=== PATIENT | male | born 1950 | race Caucasian/White ===

== ENCOUNTER → 2016-07-20 | Outpatient (CLI) | payer OTHER | LOC: FIMAGING 18:47 | PROVIDERS: ATTEND Orthopaedic Surgery | DX: M23.222 Derangement of posterior horn of medial meniscus due to old tear or injury, left knee (principal); M25.462 Effusion, left knee; M76.32 Iliotibial band syndrome, left leg; M22.42 Chondromalacia patellae, left knee ==

== ENCOUNTER 2017-10-30 13:59 | Inpatient (IN) | payer OTHER ==
--- NOTE | 2017-10-30 14:12 | CPEKG ---
Heart Rate: 88 RR Interval: 682 P-R Interval: 160 QRSD Interval: 128 QT Interval: 392 QTC Interval: 475 P Golden: 70 QRS Golden: 61 T Wave Golden: 2 EKG Severity - ABNORMAL ECG - EKG Impression: SINUS RHYTHM EKG Impression: RIGHT BUNDLE BRANCH BLOCK Electronically Signed By: Kiana Zaragoza 30-Oct-2017 15:32:07
[2017-10-30] MEDS ORDERED: ASPIRIN 81 MG CHEWABLE TAB ONE (14:45)
[2017-10-30] MEDS ORDERED: ASPIRIN 81 MG CHEWABLE TAB PO ONE (14:48)
[2017-10-30 14:58] LABS: PLATELET COUNT 213 10^3/uL (150-400)
--- NOTE | 2017-10-30 15:05 | EDPHY ---
H & P Stated Complaint: L sided CP during exertion on bike ride;no other sxs;has lessened sinc arri Time Seen by Provider: 10/30/17 14:36 HPI/ROS: CHIEF COMPLAINT: Chest pain HISTORY OF PRESENT ILLNESS: 67-year-old male presents with chest pain. Onset left-sided chest pain this afternoon while on a bike ride. The chest pain lasted approximately 20 min and then resolved once he stopped riding his bike. No associated symptoms. Similar episode yesterday while on the treadmill, lasting approximately 15 min and resolved with rest. History of prior transient chest pain. Calcium scoring 9 years ago 400, according to the patient. He has been on a statin since then. Cardiac risk factors positive for hyperlipidemia and family history. Nonsmoker ; no hypertension, no diabetes. REVIEW OF SYSTEMS: complete 10 point ROS negative except at noted in the HPI - Personal History Current Tetanus Diphtheria and Acellular Pertussis (TDAP): Yes - Medical/Surgical History Other PMH: Hyperlipidemia - Family History Significant Family History: Heart disease - Social History Smoking Status: Never smoked Alcohol Use: Sober Drug Use: None - Physical Exam Exam: General Appearance: Alert, pleasant Eyes: Pupils equal and round, no conjunctival pallor or injection ENT, Mouth: Mucous membranes moist Neck: Normal inspection Respiratory: Normal inspection, no chest wall tenderness, Lungs are clear to auscultation Cardiovascular: Regular rate and rhythm Gastrointestinal: Abdomen is soft and nontender Neurological: A&O, nonfocal, normal gait Skin: Warm and dry, no rash Extremities: Nontender, no pedal edema Psychiatric: Mood and affect normal Constitutional: Initial Vital Signs Temperature (C) 36.7 C 10/30/17 13:59 Heart Rate 92 10/30/17 13:59 Respiratory Rate 18 10/30/17 13:59 Blood Pressure 122/75 H 10/30/17 13:59 O2 Sat (%) 98 10/30/17 13:59 O2 Delivery Mode Room Air Allergies/Adverse Reactions: Sulfa (Sulfonamide Antibiotics) Allergy (Mild, Verified 10/30/17 14:04) GI upset Home Medications: Medication Instructions Recorded Aspirin EC [Aspirin EC 81 mg (*)] 81 mg PO DAILY 10/30/17 Simvastatin [Zocor] 40 mg PO HS 10/30/17 celeCOXIB [Celebrex (*)] 200 mg PO DAILY PRN 10/30/17 Medical Decision Making - Diagnostics EKG Interpretation: EKG interpreted by me reveals normal sinus rhythm, rate 88, right bundle branch block. Interpretation: Abnormal EKG Imaging Results: Imaging Impressions Chest X-Ray 10/30/17 14:43 Impression: No acute findings in the chest. ED Course/Re-evaluation: This patient presents with exertional chest pain, concerning for unstable angina. Stat EKG reveals no evidence of ischemia or dysrhythmia. Aspirin 324 mg orally given. I-STAT troponin is negative. 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 The patient was asymptomatic throughout his emergency department stay. The hospitalist service was consulted for admission for further evaluation of exertional chest pain. Differential Diagnosis: Differential diagnosis includes though it is not limited to pneumonia, pneumothorax, pulmonary embolism, aortic dissection, pericarditis, acute coronary syndrome. - Data Points Laboratory Results: Laboratory Results 10/30/17 14:15 10/30/17 14:15 10/30/17 10/30/17 10/30/17 14:15 14:15 14:15 WBC RBC Hgb Hct MCV MCH MCHC RDW Plt Count MPV Neut % (Auto) Lymph % (Auto) [place] % (Auto) Eos % (Auto) Baso % (Auto) Nucleat RBC Rel Count Absolute Neuts (auto) Absolute Lymphs (auto) Absolute Monos (auto) Absolute Eos (auto) Absolute Basos (auto) Absolute Nucleated RBC Immature Gran % Immature Gran # D-Dimer 0.45 ug/mLFEU ug/mLFEU (0.00-0.50) Sodium 145 mEq/L mEq/L (135-145) Potassium 3.9 mEq/L mEq/L (3.3-5.0) Chloride 106 mEq/L mEq/L (97-110) Carbon Dioxide 26 mEq/l mEq/l (22-31) Anion Gap 13 mEq/L mEq/L (8-16) BUN 16 mg/dL mg/dL (7-23) Creatinine 1.1 mg/dL mg/dL (0.7-1.3) Estimated GFR > 60 Glucose 78 mg/dL mg/dL (70-100) Hemoglobin A1c Pending Estim Average Glucose Pending Calcium 10.3 mg/dL mg/dL (8.5-10.4) POC Troponin I NT-Pro-B Natriuret Pep 102 pg/mL pg/mL (0-125) 10/30/17 10/30/17 14:15 14:14 WBC 5.28 10^3/uL 10^3/uL (3.80-9.50) RBC 4.96 10^6/uL 10^6/uL (4.40-6.38) Hgb 15.3 g/dL g/dL (13.7-17.5) Hct 45.5 % % (40.0-51.0) MCV 91.7 fL fL (81.5-99.8) MCH 30.8 pg pg (27.9-34.1) MCHC 33.6 g/dL g/dL (32.4-36.7) RDW 12.8 % % (11.5-15.2) Plt Count 213 10^3/uL 10^3/uL (150-400) MPV 9.7 fL fL (8.7-11.7) Neut % (Auto) 49.8 % % (39.3-74.2) Lymph % (Auto) 39.2 % % (15.0-45.0) [place] % (Auto) 8.3 % % (4.5-13.0) Eos % (Auto) 1.7 % % (0.6-7.6) Baso % (Auto) 0.8 % % (0.3-1.7) Nucleat RBC Rel Count 0.0 % % (0.0-0.2) Absolute Neuts (auto) 2.63 10^3/uL 10^3/uL (1.70-6.50) Absolute Lymphs (auto) 2.07 10^3/uL 10^3/uL (1.00-3.00) Absolute Monos (auto) 0.44 10^3/uL 10^3/uL (0.30-0.80) Absolute Eos (auto) 0.09 10^3/uL 10^3/uL (0.03-0.40) Absolute Basos (auto) 0.04 10^3/uL 10^3/uL (0.02-0.10) Absolute Nucleated RBC 0.00 10^3/uL 10^3/uL (0-0.01) Immature Gran % 0.2 % % (0.0-1.1) Immature Gran # 0.01 10^3/uL 10^3/uL (0.00-0.10) D-Dimer Sodium Potassium Chloride Carbon Dioxide Anion Gap BUN Creatinine Estimated GFR Glucose Hemoglobin A1c Estim Average Glucose Calcium POC Troponin I 0.01 ng/mL ng/mL (0.00-0.08) NT-Pro-B Natriuret Pep Medications Given: Albuterol (Proventil Neb) 3 ml IH QID KIMBERLY Stop: 04/28/18 16:34 Last Admin: 10/30/17 17:22 Dose: 3 ml Discontinued Medications Aspirin (Aspirin) 324 mg PO EDNOW ONE Stop: 10/30/17 14:49 Last Admin: 10/30/17 14:49 Dose: 324 mg Point of Care Test Results: Chemistry 10/30/17 14:14 POC Troponin I 0.01 ng/mL ng/mL (0.00-0.08) Departure - Departure Disposition: [facility] Inpatient Acute Clinical Impression: Chest pain Qualifiers: Chest pain type: precordial pain Qualified Code(s): R07.2 - Precordial pain Condition: Good
[2017-10-30] MEDS ORDERED: ONDANSETRON 4 MG/2 ML VIAL IVP PRN (15:47)
[2017-10-30] MEDS ORDERED: ONDANSETRON DISINTEGRATING 4 MG TAB PO PRN (15:47)
[2017-10-30] MEDS ORDERED: ACETAMINOPHEN 325 MG TAB PO PRN (15:47)
--- NOTE | 2017-10-30 16:41 | PDGENHP ---
History and Physical - Chief Complaint chest pain - History of Present Illness This is a 67 yo male with fm hx of CAD who p/w left sided chest pain and discomfort. He reports a long hx of chest discomfort upon beginning his exercise routine such a running or cycling but then dissipating after a few minutes. Yesterday the discomfort persisted while he ran the treadmill and today the discomfort was constant during the climb on a bike ride. He, therefore , rode his bike to the ER. In the ER a trop and an EKG are non revealing. A CXR does show hyperinflation ( my read). He does not have a hx of bronchitis, asthma, copd. He does not smoke RF: Family hx, HLD. He does not have a hx of DM or HTN. He is not obese. He denies current chest pain. no palpitations or leg swelling. No abd pain or discomfort CHIEF COMPLAINT: Chest pain HISTORY OF PRESENT ILLNESS: 67-year-old male presents with chest pain. Onset left-sided chest pain this afternoon while on a bike ride. The chest pain lasted approximately 20 min and then resolved once he stopped riding his bike. No associated symptoms. Similar episode yesterday while on the treadmill, lasting approximately 15 min and resolved with rest. History of prior transient chest pain. Calcium scoring 9 years ago 400, according to the patient. He has been on a statin since then. Cardiac risk factors positive for hyper lipidemia and family history. Nonsmoker ; no hypertension, diabetes. REVIEW OF SYSTEMS: complete 10 point ROS negative except at noted in the HPI - Medical/Surgical History Other PMH: Hyperlipidemia - Family History Significant Family History: Heart disease - Social History Smoking Status: Never smoked Alcohol Use: Socially, drinks wine with dinner Drug Use: None History Information - Allergies/Home Medication List Allergies/Adverse Reactions: Sulfa (Sulfonamide Antibiotics) Allergy (Mild, Verified 10/30/17 14:04) GI upset Home Medications: Aspirin EC [Aspirin EC 81 mg (*)] 81 mg PO DAILY 10/30/17 [Last Taken 10/29/17] Simvastatin [Zocor] 40 mg PO HS 10/30/17 [Last Taken 10/29/17] celeCOXIB [Celebrex (*)] 200 mg PO DAILY PRN 10/30/17 [Last Taken Unknown] I have personally reviewed and updated: medical history, social history - Social History Smoking Status: Never smoked Alcohol Use: Sober Drug Use: None Review of Systems Review of Systems: ROS: 10pt was reviewed & negative except for what was stated in HPI & below Physical Exam Physical Exam: Temp Pulse Resp BP Pulse Ox 36.9 C 59 L 16 123/69 H 94 10/30/17 16:06 10/30/17 16:06 10/30/17 16:06 10/30/17 16:06 10/30/17 16:06 Constitutional: no apparent distress, not in pain Eyes: PERRL, EOMI Ears, Nose, Mouth, Throat: moist mucous membranes, hearing normal, ears appear normal Cardiovascular: regular rate and rhythym, no murmur, rub, or gallop, No edema Respiratory: no respiratory distress, reduced air movement, No expiratory wheeze Gastrointestinal: normoactive bowel sounds, soft, non-tender abdomen Skin: warm Musculoskeletal: No generalized weakness Neurologic: AAOx3 Psychiatric: interacting appropriately, not anxious, not encephalopathic Lymph, Heme, Immunologic: No petechiae Lab Data & Imaging Review 10/30/17 14:15 10/30/17 14:15 WBC 5.28 10^3/uL (3.80-9.50) 10/30/17 14:15 RBC 4.96 10^6/uL (4.40-6.38) 10/30/17 14:15 Hgb 15.3 g/dL (13.7-17.5) 10/30/17 14:15 Hct 45.5 % (40.0-51.0) 10/30/17 14:15 MCV 91.7 fL (81.5-99.8) 10/30/17 14:15 MCH 30.8 pg (27.9-34.1) 10/30/17 14:15 MCHC 33.6 g/dL (32.4-36.7) 10/30/17 14:15 RDW 12.8 % (11.5-15.2) 10/30/17 14:15 Plt Count 213 10^3/uL (150-400) 10/30/17 14:15 MPV 9.7 fL (8.7-11.7) 10/30/17 14:15 Neut % (Auto) 49.8 % (39.3-74.2) 10/30/17 14:15 Lymph % (Auto) 39.2 % (15.0-45.0) 10/30/17 14:15 [place] % (Auto) 8.3 % (4.5-13.0) 10/30/17 14:15 Eos % (Auto) 1.7 % (0.6-7.6) 10/30/17 14:15 Baso % (Auto) 0.8 % (0.3-1.7) 10/30/17 14:15 Nucleat RBC Rel Count 0.0 % (0.0-0.2) 10/30/17 14:15 Absolute Neuts (auto) 2.63 10^3/uL (1.70-6.50) 10/30/17 14:15 Absolute Lymphs (auto) 2.07 10^3/uL (1.00-3.00) 10/30/17 14:15 Absolute Monos (auto) 0.44 10^3/uL (0.30-0.80) 10/30/17 14:15 Absolute Eos (auto) 0.09 10^3/uL (0.03-0.40) 10/30/17 14:15 Absolute Basos (auto) 0.04 10^3/uL (0.02-0.10) 10/30/17 14:15 Absolute Nucleated RBC 0.00 10^3/uL (0-0.01) 10/30/17 14:15 Immature Gran % 0.2 % (0.0-1.1) 10/30/17 14:15 Immature Gran # 0.01 10^3/uL (0.00-0.10) 10/30/17 14:15 D-Dimer 0.45 ug/mLFEU (0.00-0.50) 10/30/17 14:15 Sodium 145 mEq/L (135-145) 10/30/17 14:15 Potassium 3.9 mEq/L (3.3-5.0) 10/30/17 14:15 Chloride 106 mEq/L (97-110) 10/30/17 14:15 Carbon Dioxide 26 mEq/l (22-31) 10/30/17 14:15 Anion Gap 13 mEq/L (8-16) 10/30/17 14:15 BUN 16 mg/dL (7-23) 10/30/17 14:15 Creatinine 1.1 mg/dL (0.7-1.3) 10/30/17 14:15 Estimated GFR > 60 10/30/17 14:15 Glucose 78 mg/dL (70-100) 10/30/17 14:15 Calcium 10.3 mg/dL (8.5-10.4) 10/30/17 14:15 POC Troponin I 0.01 ng/mL (0.00-0.08) 10/30/17 14:14 NT-Pro-B Natriuret Pep 102 pg/mL (0-125) 10/30/17 14:15 Assessment & Plan Assessment: #chest pain #? RAD #HLD Plan: Observation The persistence of his symptoms while riding his bike on a climb are worrisome. He will get serial trops, telemetry, TTE. Will order treadmill stress tomorrow Other etiologies could also include RAD and will try a trial of bronchodilators cont home meds -cont daily aspirin check lipid panel and A1C SCD Full code
[2017-10-30] MEDS: ALBUTEROL 3 ML DEYVIAL IH SCH ×2 (17:22→21:50)
[2017-10-30] MEDS: ATORVASTATIN CALCIUM 20 MG TAB PO SCH (20:53)
[2017-10-31] MEDS: ALBUTEROL 3 ML DEYVIAL IH SCH ×3 (06:05→16:42)
[2017-10-31] MEDS ORDERED: ASPIRIN EC 81 MG TAB PO SCH (09:00)
--- NOTE | 2017-10-31 10:14 | ASMTCMCOM ---
CM Note CM Note Notes: 10/31/2017 Case Management Note Met w/pt. ORTIZ signed. Pt admitted for chest pain and subsequent work up. Pt is employed as an telecom sales consultant. Pt lives independently with his Ashly [phone]. Pt is an avid biker. There are no case management d/c needs identified. Case Management d/c poc: independent with follow up as directed. Case Management available if needs change. Date Signed: 10/31/2017 10:13 AM Electronically Signed By:Nehal Garcia RN
--- NOTE | 2017-10-31 11:39 | PDCARST ---
CAR Stress Test Results Type of Stress Test: Pepito protocol stress testing Indication: chest pains with exertion in setting of known CAD (by MSCT) Description of Procedure: Consents were signed and risks were discussed. Heart rate, blood pressure, oximetry, and live telemetry were monitored over course of this study. Physical exam pre stress without pathology murmur identified. Impression: Patient with "chest discomfort" noted at 4:40 into study. Peak heart rate to 77% with noted symptoms. ECG changes (on top of baseline RBBB with LAFB) noted a drop in ST segment of at least 1.5 mm (closing in on 2 mm). Jang Treadmill Score was 6 -5(2) - 4(1) = -8 (intermediate risk). Conclusion: Abnormal exercise stress testing. Nuclear images are pending.
[2017-10-31] MEDS ORDERED: DIAZEPAM 5 MG TAB PO ONE (11:49)
[2017-10-31] MEDS ORDERED: NITROGLYCERIN 0.4 MG BTL SL PRN (11:49)
[2017-10-31] MEDS ORDERED: diphenhydrAMINE 25 MG CAP PO ONE (11:49)
[2017-10-31] MEDS ORDERED: TEMAZEPAM 15 MG CAP PO PRN (11:49)
[2017-10-31] MEDS ORDERED: FAMOTIDINE 20 MG TAB PO ONE (11:49)
[2017-10-31] MEDS ORDERED: NS 1,000 ML IV SCH (12:00)
--- NOTE | 2017-10-31 15:14 | ECHO ---
[email or web address] [address] [address] Main: [phone] Fax: [email or web address] Echocardiogram Name: DUNCAN MUÑOZ MR#: [id number] Study Date: 10/31/2017 Study Time: 12:07 PM Date of : 1950 Age: 67 year(s) Height: 188 cm (74 in.) Weight: 78.93 kg (174 lb.) BSA: 2.05 m2 Gender: Male Examination: Echo Indication: Chest Pain Image Quality: Adequate Contrast: Requested by: Mynor Dias BP: 108 mmHg/69 mmHg Heart Rate: Rhythm: Indication: Chest Pain Procedure Staff Champion Of Sustainable Design: Miroslava Morgan [facility] Reading Physician: Bang Hawk MD Requesting Provider: Conclusions: Normal size left ventricle. No LV hypertrophy. Normal global systolic LV function. EF is 57 %. The mitral valve is normal in appearance and function. Mild mitral valve regurgitation is present. The aortic valve is tri-leaflet. Mild tricuspid regurgitation is present. Right ventricular systolic pressure measures 21mmHg. Normal size ascending aorta measuring 3.2 cm. No pericardial effusion. Measurements: Chambers Valvular Assessment AV/MV Valvular Assessment TV/PV Normal Normal Normal Name Value Range Name Value Range Name Value Range Ao Gema (2D): 3.0 cm (1.4 cm-2.6 AV Vmax: 1.30 m/s (1 m/s-1.7 TR Vmax: 2.02 mm/s ( - ) cm) m/s) TR PGmax: 16 mmHg ( - ) IVSd (2D): 0.8 cm (0.6 cm-1.1 AV maxP mmHg ( - ) syst. PAP: 21 mmHg ( - ) cm) AV meanP mmHg ( - ) PV Vmax: 0.72 m/s (0.6 m/s-0.9 LVDd (2D): 4.8 cm (4.2 cm-5.9 DANISH (VTI): 2.3 cm ( - ) m/s) cm) MV E Vmax: 0.63 m/s ( - ) PV PGmax: 2 mmHg ( - ) LVDs (2D): 3.2 cm (2.1 cm-4 MV A Vmax: 0.49 m/s ( - ) cm) MV E/A: 1.29 ( - ) LVPWd (2D): 0.9 cm (0.6 cm-1 cm) MV PHT: 0.050 s ( - ) LVOTd 2.1 cm 2.1 cm mm MVA (PHT): 4.4 s ( - ) LVEF (BP): 57 % (>=55 %) RVDd(2D): 3.0 cm (1.9 cm-3.8 cmmm) Patient: DUNCAN MUÑOZ Study Date: 10/31/2017 Page 1 of 2 12:07 PM Continued Measurements: Chambers Valvular Assessment AV/MV Valvular Assessment TV/PV Name Value Name Value Name Value LADs: 3.2 cm MV DecTime: 165 m/s CVP (est.): 5 mmHg LADs Lon.4 cm MV E' Septal: 0.11 m/s LA Area: 19.5 cm2 MV E/E' Septal: 5.90 LA Volume: 55 ml MV E/E' Lateral: 5.10 LA Volume Index: 26.8 ml/m2 RA Area: 22.2 cm2 Additional Vessels Name Value Ao Ascendin.2 cm Inferior Vena Cava: 1.6 cm Findings: Left Ventricle: Normal size left ventricle. No LV hypertrophy. Normal global systolic LV function. EF is 57 %. No regional wall motion abnormality. Normal diastolic LV function. Right Ventricle: Normal size right ventricle. Normal RV function. Left Atrium: The left atrium is normal in size. Right Atrium: The right atrium is normal in size. Mitral Valve: The mitral valve is normal in appearance and function. Mild mitral valve regurgitation is present. No mitral stenosis is present. Aortic Valve: The aortic valve is tri-leaflet. There is no significant aortic valve regurgitation. No aortic valve stenosis is present. Tricuspid Valve: The tricuspid valve is normal in appearance and function. Mild tricuspid regurgitation is present. The pulmonary artery pressure is normal. Right ventricular systolic pressure measures 21mmHg. Pulmonic Valve: Pulmonary valve not well visualized. There is no pulmonic regurgitation seen. Aorta: The aorta is normal. Normal size aortic root measuring 3.0 cm. Normal size ascending aorta measuring 3.2 cm. IVC: The IVC is normal sized. Pericardium: No pericardial effusion. No pleural effusion. (No Signature Object) Patient: DUNCAN MUÑOZ Study Date: 10/31/2017 Page 2 of 2 12:07 PM [id number]
--- NOTE | 2017-10-31 18:49 | HOSPPROG ---
Hospitalist Progress Note Assessment/Plan: Assessment: 67-year-old male presents with acute chest pain concerning for acute coronary syndrome Plan: 1. Possible acute coronary syndrome. New problem this provider, further workup indicated. Patient's symptoms are highly concerning for angina, and he has abnormal nuclear medicine stress test demonstrating inferior defect -EKG demonstrating right bundle branch block, normal sinus mechanism, personally interpreted comma chest x-ray demonstrates no focal airspace disease , personally interpreted, D-dimer negative -discussed with Dr. Bang Hawk, we both agree that the patient is highly concerning presentation and abnormal diagnostic testing warrant further urgent cardiac evaluation with catheterization -catheterization has been scheduled for tomorrow a.m., will continue with full- dose aspirin and statin -if patient develops chest pain, give sublingual nitroglycerin, morphine, therapeutic Lovenox dosing, beta-clovis Diet. Regular, NPO in a.m. Code. Full Prophylaxis. Lovenox 40 Disposition. Anticipated discharge uncertain this time, anticipated length stay is greater than 48 hr requiring upgraded to inpatient admission status for reasonable medical necessity including suspected acute coronary syndrome requiring cardiac catheterization after abnormal stress testing and high risk patient. Subjective: Patient is currently chest pain-free Objective: Vital Signs Temp Pulse Resp BP Pulse Ox 37.1 C 69 15 124/79 H 96 10/31/17 15:36 10/31/17 15:36 10/31/17 15:36 10/31/17 15:36 10/31/17 15:36 - Physical Exam Constitutional: no apparent distress, appears nourished, not in pain, No uncomfortable Cardiovascular: regular rate and rhythym, no murmur, rub, or gallop, No edema Respiratory: no respiratory distress, no rales or rhonchi, clear to auscultation Gastrointestinal: normoactive bowel sounds, soft, non-tender abdomen, no palpable masses, No distension Neurologic: AAOx3 Psychiatric: interacting appropriately, not anxious, not encephalopathic, thought process linear ICD10 Worksheet Patient Problems: Problems Problem Status Onset Chest pain Acute
[2017-10-31] MEDS: ATORVASTATIN CALCIUM 20 MG TAB PO SCH (21:10)
[2017-10-31 23:29] LABS: INR 0.93 (0.83-1.16); PROTIME(PATIENT) 12.7 SEC (12.0-15.0)
[2017-11-01] MEDS: ALBUTEROL 3 ML DEYVIAL IH SCH ×3 (01:25→10:09)
[2017-11-01] MEDS ORDERED: diphenhydrAMINE 25 MG CAP PO ONE ×2 (07:00→11:00)
[2017-11-01] MEDS ORDERED: FAMOTIDINE 20 MG TAB PO ONE ×2 (07:00→11:00)
[2017-11-01] MEDS ORDERED: DIAZEPAM 5 MG TAB PO ONE ×2 (07:00→11:00)
--- NOTE | 2017-11-01 08:01 | PDCARCONS ---
Cardiology Consult Reason for Consult: Abnormal stress test Chief Complaint: chest pain Requesting Physician: The Hospitalist team History of Present Illness: Patient is a 67 y/o male with a history of HLP, but no CAD, HTN, or DM who presented to [facility] ED on 10/31/2017 with chest discomfort. The chest pain came on when patient was riding his bike and he rode directly to the ED at that time. He described the pain as a constant tightness without radiation. No complaints of diaphoresis, nausea/vomiting, dyspnea, orthopnea, or ankle swelling. He mentions he had a similar feeling when he was exercising at the gym 1 week ago, but it resolved with rest, unlike this time. An exercise stress test was done yesterday, which was abnormal and brought on similar feelings of chest pain. The patient had a heart scan and stress test done 9 years ago when he had an episode of chest discomfort (calcium score was 400, stress test was normal). He then had a repeat heart scan 1 year ago, which showed a reportedly lower calcium score (does not recall exact number). Patient has a family history of cardiac issues on his mother's side, including multiple MIs, CHF, and HTN in family members. He exercises very regularly (biking, running, hiking, skiing, weight lifting) and eats a healthy diet. He has never smoked and drinks a glass of wine every day on average. 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 12 point review of systems was unremarkable History Information - Allergies/Home Medication List Allergies/Adverse Reactions: Sulfa (Sulfonamide Antibiotics) Allergy (Mild, Verified 10/30/17 14:04) GI upset Home Medications: Aspirin EC [Aspirin EC 81 mg (*)] 81 mg PO DAILY 10/30/17 [Last Taken 10/29/17] Simvastatin [Zocor] 40 mg PO HS 10/30/17 [Last Taken 10/29/17] celeCOXIB [Celebrex (*)] 200 mg PO DAILY PRN 10/30/17 [Last Taken Unknown] I have personally reviewed and updated: family history, medical history, social history, surgical history Past Medical History: - Past Medical History hyperlipidemia - Surgical History Additional surgical history: Back surgery in 2008 - Family History Positive for: CAD (multiple MIs and CHF in family members on mother's side), hypertension (multiple family members om mother's side) - Social History Smoking Status: Never smoked Alcohol Use: Occasionally Drug Use: None Additional social history: Lives with his and has 2 grown children (both ) and 2 grandkids. Cardiac History - Cardiac History Past Cardiac History: CAD (determined via heart scan) Cardiac Risk Factors: lipidemia, age > 65, male Timing/Duration: Hours Severity: moderate Severity Scale: 2 Location: central Activities at Onset: activity Modifying Factors: improves with: exercise (worsen), rest (improve) Associated Symptoms: chest pain SIDNEY Risk Evaluation age greater or equal to 65: yes greater or equal to 3 CAD risk factors: no known CAD(stenosis greater or eqaul to 50%): yes ASA use in past 7 days: yes severe angina(greater or equal to 2 episodes in 24hrs): no EKG ST changes greater or equal to 0.5mm: no positive cardiac marker: no Total Score: 3 SIDNEY Score: 13.2% risk Physical Exam Physical Exam: Temp Pulse Resp BP Pulse Ox 36.3 C 72 14 114/69 94 11/01/17 04:00 11/01/17 04:00 11/01/17 04:00 11/01/17 04:00 11/01/17 04:00 Constitutional: no apparent distress, appears nourished Eyes: PERRL, EOMI Ears, Nose, Mouth, Throat: moist mucous membranes, hearing normal, ears appear normal Cardiovascular: regular rate and rhythym, no murmur, rub, or gallop, pulses symmetric bilaterally, No JVD Peripheral Pulses: 2+: dorsalis-pedis (R), dorsalis-pedis (L) Respiratory: no respiratory distress, no rales or rhonchi, clear to auscultation Gastrointestinal: normoactive bowel sounds Skin: warm, normal color, no rashes or abrasions, no fluctuance, no induration Musculoskeletal: full muscle strength, no muscle tenderness, normal joint ROM Neurologic: AAOx3, sensation intact bilaterally Psychiatric: interacting appropriately, not anxious Lab and Imaging 10/31/17 22:50 10/31/17 22:50 WBC 4.40 10^3/uL (3.80-9.50) 10/31/17 22:50 RBC 4.48 10^6/uL (4.40-6.38) 10/31/17 22:50 Hgb 13.8 g/dL (13.7-17.5) 10/31/17 22:50 Hct 41.3 % (40.0-51.0) 10/31/17 22:50 MCV 92.2 fL (81.5-99.8) 10/31/17 22:50 MCH 30.8 pg (27.9-34.1) 10/31/17 22:50 MCHC 33.4 g/dL (32.4-36.7) 10/31/17 22:50 RDW 13.0 % (11.5-15.2) 10/31/17 22:50 Plt Count 176 10^3/uL (150-400) 10/31/17 22:50 MPV 9.7 fL (8.7-11.7) 10/30/17 14:15 Neut % (Auto) 49.8 % (39.3-74.2) 10/30/17 14:15 Lymph % (Auto) 39.2 % (15.0-45.0) 10/30/17 14:15 Dolores % (Auto) 8.3 % (4.5-13.0) 10/30/17 14:15 Eos % (Auto) 1.7 % (0.6-7.6) 10/30/17 14:15 Baso % (Auto) 0.8 % (0.3-1.7) 10/30/17 14:15 Nucleat RBC Rel Count 0.0 % (0.0-0.2) 10/30/17 14:15 Absolute Neuts (auto) 2.63 10^3/uL (1.70-6.50) 10/30/17 14:15 Absolute Lymphs (auto) 2.07 10^3/uL (1.00-3.00) 10/30/17 14:15 Absolute Monos (auto) 0.44 10^3/uL (0.30-0.80) 10/30/17 14:15 Absolute Eos (auto) 0.09 10^3/uL (0.03-0.40) 10/30/17 14:15 Absolute Basos (auto) 0.04 10^3/uL (0.02-0.10) 10/30/17 14:15 Absolute Nucleated RBC 0.00 10^3/uL (0-0.01) 10/30/17 14:15 Immature Gran % 0.2 % (0.0-1.1) 10/30/17 14:15 Immature Gran # 0.01 10^3/uL (0.00-0.10) 10/30/17 14:15 PT 12.7 SEC (12.0-15.0) 10/31/17 22:50 INR 0.93 (0.83-1.16) 10/31/17 22:50 D-Dimer 0.45 ug/mLFEU (0.00-0.50) 10/30/17 14:15 Sodium 141 mEq/L (135-145) 10/31/17 22:50 Potassium 3.8 mEq/L (3.3-5.0) 10/31/17 22:50 Chloride 103 mEq/L (97-110) 10/31/17 22:50 Carbon Dioxide 28 mEq/l (22-31) 10/31/17 22:50 Anion Gap 10 mEq/L (8-16) 10/31/17 22:50 BUN 19 mg/dL (7-23) 10/31/17 22:50 Creatinine 1.0 mg/dL (0.7-1.3) 10/31/17 22:50 Estimated GFR > 60 10/31/17 22:50 Glucose 95 mg/dL (70-100) 10/31/17 22:50 Hemoglobin A1c 5.3 % (4.0-6.0) 10/30/17 14:15 Estim Average Glucose 105 mg/dL (68-126) 10/30/17 14:15 Calcium 9.6 mg/dL (8.5-10.4) 10/31/17 22:50 Magnesium 2.1 mg/dL (1.6-2.3) 10/31/17 22:50 Total Bilirubin 0.8 mg/dL (0.1-1.4) 10/31/17 22:50 AST 20 IU/L (17-59) 10/31/17 22:50 ALT 40 IU/L (21-72) 10/31/17 22:50 Alkaline Phosphatase 44 IU/L (38-126) 10/31/17 22:50 POC Troponin I 0.01 ng/mL (0.00-0.08) 10/30/17 14:14 Troponin I < 0.012 ng/mL (0.000-0.034) 10/31/17 03:26 NT-Pro-B Natriuret Pep 102 pg/mL (0-125) 10/30/17 14:15 Total Protein 6.2 g/dL (6.3-8.2) L 10/31/17 22:50 Albumin 3.8 g/dL (3.5-5.0) 10/31/17 22:50 Triglycerides 90 mg/dL (40-150) 10/31/17 03:26 Cholesterol 130 mg/dL (140-220) L 10/31/17 03:26 Cholesterol Risk Factr 0.4 (0.2-1.0) 10/31/17 03:26 LDL Cholesterol, Calc 41 mg/dL (80-100) L 10/31/17 03:26 LDL Risk Factor 0.4 (0.2-1.0) 10/31/17 03:26 VLDL Cholesterol 18 mg/dL (8-25) 10/31/17 03:26 Non-HDL Cholesterol 59 mg/dL (90-129) L 10/31/17 03:26 HDL Cholesterol 71 mg/dL (40-65) H 10/31/17 03:26 LDL/HDL Ratio 0.58 RATIO (1.00-3.64) L 10/31/17 03:26 Cholesterol/HDL Ratio 1.83 RATIO (1.00-4.97) 10/31/17 03:26 TSH 1.110 uIU/mL (0.465-4.680) 10/31/17 03:26 Visualized and Interpreted Chest x-ray results: Yes Chest X-ray Interpretation: normal, normal heart size Visualized and Interpreted EKG results: Yes EKG Interpretation: Positive for: normal sinsus rhythm EKG additional interpertation: RBBB pattern noted Telemetry: normal sinus rhythm Echocardiogram: normal LVEF with mild MR and TR. normal RVSP A/P Assessment: Patient is a 67 y/o male with history of HLP (on therapy) and known CAD (by MSCT ) with complaints of chest discomfort. Stress testing with similar symptoms noted at [address]/T wave changes were noted (1.5 to 2.0) with Jang Treadmill Score of -8. Diminished perfusion was also noted (stress images only). Recommendations are for patient to have invasive testing. Plan: Left heart cath today Continue ASA for life Continue statins as at present Further recommendations to follow
[2017-11-01] MEDS ORDERED: ASPIRIN EC 325 MG TAB PO SCH (09:00)
--- NOTE | 2017-11-01 09:27 | PDMN ---
Medical Necessity Medical necessity: Change to IP, as of 10/31/17, per MD; los >2 mn for ongoing management of chest pain w/abnormal stress testing; pt at za risk; suspected coronary syndrome, admit for urgent cardiac evaluation w/catheterization, further monitoring & med management; per progress note & order 10/31/17
--- NOTE | 2017-11-01 10:42 | PDPROPOC ---
Sedation Plan of Care Sedation Plan of Care: vital signs stable, mental status noted, patient educated of risks, benefits, alternatives, patient can tolerate sedation ASA Classification: ASA 2 Planned drugs: fentanyl, midazolam Mallampati Score: Class 1 Mallampati Reference Image: Patient passed 3-3-2 rule?: Yes
[2017-11-01] MEDS ORDERED: IOPAMIDOL (ISOVUE-370) 150 ML BTL IV ONE (11:14)
[2017-11-01] MEDS ORDERED: fentaNYL 100 MCG/2 ML INJ ONE (11:14)
[2017-11-01] MEDS ORDERED: MIDAZOLAM 2 MG/2 ML VIAL ONE ×2 (11:14)
[2017-11-01] MEDS ORDERED: LIDOCAINE 1% 300 MG/30 ML SDV ONE (11:14)
[2017-11-01] MEDS ORDERED: NS 1,000 ML IV SCH (11:30)
--- NOTE | 2017-11-01 12:14 | PDDXCAT ---
Diagnostic Cath Note - . Date: 11/01/17 Director Consumer Affairs: Kenn Indication: High-risk criteria on noninvasive testing (choose option below) High-risk criteria on non-invasive testing: stress-induced moderate-size multiple perfusion defects - Procedure Access: right groin Procedure: left heart catheterization, coronary angiography, left ventriculogram - Materials Left Heart Cath size: 6F Left Heart Cath materials: standard multipack (JL4, JR4, pigtail) - Findings-Left Heart Catheterization LM: Short, bifurcating into the LAD and LCX vessels. No appreciable luminal irregularities were noted. LAD: In the proximal portion of the vessel, there is calcification noted, but no interluminal irregularities. There is an early principal diagonal (smaller than the LAD), also without luminarl irregularities noted. LCX: Medium diameter vessel with smallish OM1. No luminal irregularities were noted. RCA: Medium to large diameter vessel with supply to the PDA/ROMI territory. No luminal irregularities were noted. EDP: 14 mm Hg LVEF: 65% Wall motion: normal wall motion Complications: none Estimated blood loss: <50ml Closure method: Angioseal Assessment: Patient is a 67 y/o male with history of HLP (on therapy) and known CAD (by MSCT) without critical lesions noted by angiography. There is calcium in the LAD vessel wall, but no luminal irregularities were noted. Normal LVEF with normal wall motion. Plan: Aggressive medical management (ASA should continue for life as well as statins) . Goal for LDL should be <70 mg/dL. Maintain regular and routine exercise. Would consider GI evaluation given the symptoms noted. Outpatient follow up with cardiology in 7-10 days I spoke with the patient's . Intervention: none Patient Problems: Problems Problem Status Onset Chest pain Acute
[2017-11-01] MEDS ORDERED: ATROPINE SULFATE 1 MG/10 ML SYR IVP PRN (12:55)
--- NOTE | 2017-11-01 16:51 | PDDCSUM ---
Discharge Summary Discharge Summary: DISCHARGE SUMMARY FOLLOW-UP ITEMS: Outpatient 30 day event monitor DATE OF ADMISSION: 10/30/2017 DATE OF DISCHARGE: 11/01/2017 DISCHARGE DIAGNOSES: 1. Acute chest pain 2. Nonobstructive coronary artery disease CONSULTATIONS: Cardiology PROCEDURES / IMAGING: Nuclear medicine stress test demonstrating possible inferior defect, false- positive Cardiac catheterization demonstrating coronary artery calcifications but no focal stenosis CHIEF COMPLAINT: Acute chest pain SUBJECTIVE: Patient is feeling well at time of discharge, he has some mild right groin pain PHYSICAL EXAM ON DISCHARGE: Systolic blood pressure is 120, heart rate 60-70, afebrile overnight, satting well on room air, alert awake oriented x3, no apparent distress, right groin is mildly tender to moderate palpation without any fluctuance, induration, erythema, ecchymoses. LABS ON DISCHARGE: D-dimer negative, LDL 41 HOSPITAL COURSE BY PROBLEM: The patient presented with acute chest pain and was ruled out for acute coronary syndrome with negative troponin x3, no ischemic changes on EKG. He was ruled out for obstructive coronary disease with a negative cardiac catheterization, which was indicated after he underwent a nuclear medicine stress test on 10/31, which demonstrated possible inferior defect with recurrence of symptoms. That test however was a false positive, as the patient had no evidence of stenosis on his cardiac catheterization on 11/01. The patient did have some evidence of coronary vessel calcifications, and the patient should be continued on his home dosage of aspirin and statin. His LDL is currently 41, and he is at goal. The etiology of the patient's chest pain is unclear, but it may be secondary to non pathologic exertional discomfort possibly from tissue lactic acid accumulation, or less likely tachyarrhythmia. I say less likely because the patient experienced reproduction of symptoms with stress test, but did not had any evidence of arrhythmia on cardiac monitoring at that time. He will have an outpatient 30 day event monitor and then will follow up with Dr. Hawk. He received all the appropriate post catheterization instructions, and he knows to call the [facility] office if he experiences any increase in his right groin pain. DISCHARGE MEDICATIONS: Please see official discharge medication reconciliation sheet in chart , continue all home medications without any changes. DISCHARGE INSTRUCTIONS: Please follow up with [facility] after you have completed your 30 day event monitor. TIME SPENT: Greater than 30 minutes were spent on direct patient care, as well as discharge planning and preparation.
[2017-11-01 17:03] VITALS: BP 125/72
== END 2017-11-01 17:20 | disposition home or self-care (01) | DRG 287 ==
LOC: F2W 16:10 → OBSVTOIN 10-31 14:36
PROVIDERS: ADMIT Family Medicine; ATTEND Family Medicine
DX: R07.9 Chest pain, unspecified (principal); I25.10 Atherosclerotic heart disease of native coronary artery without angina pectoris; E78.5 Hyperlipidemia, unspecified; Z82.49 Family history of ischemic heart disease and other diseases of the circulatory system
CPT/HCPCS: 84484-PO; A9500; C1760; G0378; J1644; J2250; J3010; J7613; Q9967